=== PATIENT | male | born 1980 | race Hispanic/Latino ===

== ENCOUNTER 2016-08-02 12:36 | Emergency (ER) | payer SELFPAY ==
[2016-08-02 12:42] VITALS: BP 139/96
[2016-08-02] MEDS ORDERED: TYLENOL/CODEINE PO ONE (13:52)
--- NOTE | 2016-08-02 14:07 | Emergency Department Report ---
ED General Adult HPI - General Chief complaint: Sore Throat Stated complaint: SORE THROAT Source: patient Mode of arrival: Ambulatory Limitations: No Limitations - History of Present Illness Initial comments: 35-year-old male comes back reporting that he's had a sore throat 1 week. Patient was last seen on 1236 seen for the same issues. He was diagnosed with pharyngitis. At that time strep test is negative. Patient reports that he is not getting any better he is not really able to take antibiotics as prescribed in very to difficulty swallowing. He is not able to eat or drink much. He denies any fever at this time. - Related Data Previous Rx's Medication Instructions Recorded Last Taken Type Amoxicillin/K Clav Tab [Augmentin 1 tab PO Q12HR #14 tab 07/31/16 Unknown Rx 875MG TAB] HYDROcodone/APAP 5-325 [[place] 1 each PO Q6HR PRN #12 tablet 08/02/16 Unknown Rx 5/325] Allergies Allergy/AdvReac Type Severity Reaction Status Date / Time No Known Allergies Allergy Unverified 07/31/16 08:45 ED Review of Systems ROS: Stated complaint: SORE THROAT Other details as noted in HPI ENT: throat pain ED Past Medical Hx - Surgical History Additional Surgical History: Knee - Social History Smoking Status: Current Every Day Smoker Substance Use Type: None - Medications Home Medications: Home Medications Medication Instructions Recorded Confirmed Last Taken Type Amoxicillin/K Clav Tab [Augmentin 1 tab PO Q12HR #14 tab 07/31/16 Unknown Rx 875MG TAB] HYDROcodone/APAP 5-325 [[place] 1 each PO Q6HR PRN #12 tablet 08/02/16 Unknown Rx 5/325] ED Physical Exam - General Limitations: No Limitations General appearance: alert, in no apparent distress - ENT ENT exam: Present: mucous membranes moist - Expanded ENT Exam Expanded Throat exam: Positive: tonsillar erythema, tonsillomegaly, tonsillar exudate - Neck Neck exam: Present: tenderness, lymphadenopathy - Respiratory Respiratory exam: Present: normal lung sounds bilaterally ED Course Vital Signs 08/02/16 12:40 Temperature 98.5 F Pulse Rate 112 H Respiratory 18 Rate Blood Pressure 139/96 O2 Sat by Pulse 98 Oximetry ED Medical Decision Making - Lab Data Result diagrams: 08/02/16 14:58 - Radiology Data Radiology results: image reviewed IMPRESSION: 1. Mildly prominent palatine tonsils may represent tonsillitis. No evidence of tonsillar abscess. 2. Small cystic right paramedian neck lesion may represent a thyroglossal duct cyst versus lymphatic malformation or necrotic lymph node. - Medical Decision Making Was reevaluated by this provider today. Patient was started on IV normal saline , he was given acetaminophen with codeine 10 mg suspension for pain management. CT of the neck was done with contrast. Rocephin IV and Decadron given to patient through IV. Discussed with Dr. Combs patient's condition his agree with all plan and treatment. We will discharge patient on pain medication he can complete antibiotics that was given to him on July 31 area patient verbalized understanding. Critical care attestation.: If time is entered above; I have spent that time in minutes in the direct care of this critically ill patient, excluding procedure time. ED Disposition Clinical Impression: Pharyngitis Disposition: DISCHARGED TO HOME OR SELFCARE Is pt being admited?: No Does the pt Need Aspirin: No Condition: Stable Instructions: Tonsillitis (ED) Prescriptions: HYDROcodone/APAP 5-325 [[place] 5/325] 1 each PO Q6HR PRN #12 tablet PRN Reason: Pain Referrals: PRIMARY CARE, [Primary Care Provider] - 3-5 Days [facility] [Outside] - 3-5 Days Forms: Work/School Release Form(ED)
[2016-08-02] MEDS ORDERED: NACL 0.9% 1000 ML IV ONE (14:20)
[2016-08-02 15:07] LABS: Basophils % (Auto) 0.6 % (0.0-1.8); Eosinophils % (Auto) 2.1 % (0.0-4.3); Hematocrit 43.9 % (35.5-45.6); Hemoglobin 14.8 gm/dl (11.8-15.2); Mean Corpuscular HGB Conc 34 % (32-34); Mean Corpuscular Hemoglobin 29 pg (28-32); Mean Corpuscular Volume 85 fl (84-94); Platelet Count 327 K/mm3 (140-440); Red Blood Count 5.17 M/mm3 (3.65-5.03); Red Cell Distribution Width 13.5 % (13.2-15.2); White Blood Count 8.7 K/mm3 (4.5-11.0)
--- NOTE | 2016-08-02 16:27 | Cat Scan Report ---
FINAL REPORT EXAM: CT NECK W CON HISTORY: difficulty swallowing sore throat TECHNIQUE: CT of the neck was performed after the administration of intravenous contrast. Coronal and sagittal reconstructions were included. PRIORS: None. FINDINGS: Parapharyngeal spaces: Normal. Adenoids/tonsils: The palatine tonsils are mildly prominent in size. No tonsillar or peritonsillar abscess. The adenoids and lingular tonsils appear normal. Prevertebral soft tissues: No soft tissue swelling. Airway: Patent. Lymph nodes: No pathologically enlarged lymph nodes. Retropharynx: No abscess. Paranasal sinuses: Clear. Parotid and submandibular glands: Normal attenuation. Thyroid gland: No nodules. Vasculature: Patent. Cervical spine: Intact. There is a small cystic lesion along right para median anterior neck just deep to the hyoid bone with a small calcification posteriorly measuring 9 x 6 millimeters. IMPRESSION: 1. Mildly prominent palatine tonsils may represent tonsillitis. No evidence of tonsillar abscess. 2. Small cystic right paramedian neck lesion may represent a thyroglossal duct cyst versus lymphatic malformation or necrotic lymph node.
[2016-08-02] MEDS ORDERED: ROCEPHIN/NS 1 GM/50 ML 50 ML IV ONE (16:44)
[2016-08-02] MEDS ORDERED: DECADRON IV ONE (16:47)
== END 2016-08-02 18:20 | disposition home or self-care (01) ==
LOC: ED 12:36
DX: J02.9 Acute pharyngitis, unspecified (principal); F17.200 Nicotine dependence, unspecified, uncomplicated
CPT/HCPCS: 36415; 70491; 85025; 96361; 96365; 96375; 99284; J0696; J1100; J7030; Q9967

== ENCOUNTER 2019-05-24 15:58 | Emergency (ER) | payer SELFPAY ==
[2019-05-24 16:15] VITALS: BP 121/87
[2019-05-24] MEDS ORDERED: TETANUS,DIPH,PERTUSS(ACELL) VACCINE 0.5 ML SYRINGE IM ONE ×2 (16:34→19:06)
--- NOTE | 2019-05-24 16:34 | Emergency Department Report ---
Blank Doc - Documentation Documentation: 38-year-old male that presents with left forearm lac. Stated happened 4 days ago. Not sure about tetanus. This initial assessment/diagnostic orders/clinical plan/treatment(s) is/are subject to change based on patient's health status, clinical progression and re- assessment by fellow clinical providers in the ED. Further treatment and workup at subsequent clinical providers discretion. Patient/guardians urged not to elope from the ED as their condition may be serious if not clinically assessed and managed. Initial orders include: 1- Patient sent to [facility] for further evaluation and treatment 2- tetanus
[2019-05-24] MEDS ORDERED: SULFAMETHOXAZOLE/TRIMETHOPRIM 800/160MG DS TAB PO ONE (18:42)
--- NOTE | 2019-05-24 19:23 | Emergency Department Report ---
HPI - General Chief Complaint: Wound/Laceration Time Seen by Provider: 05/24/19 16:33 - HPI HPI: 38-year-old male presents to the emergency department with complaint of a laceration to the left forearm from 4 days ago and concern for possible infection. He says that some glass fell down onto his arm and caused what appears to be a V shaped flap laceration. At the time, the patient did not seek any medical treatment and instead just use some superglue to try and close the laceration. Since that time he has developed some pain, surrounding redness, and there is some pus that will come out if you press on the wound. He denies any fever. No past medical history. No primary care physician. Unknown last tetanus vaccination. ED Past Medical Hx - Past Medical History Previous Medical History?: No - Surgical History Past Surgical History?: Yes Additional Surgical History: Knee - Social History Smoking Status: Current Every Day Smoker Substance Use Type: None - Medications Home Medications: Home Medications Medication Instructions Recorded Confirmed Last Taken Type Amoxicillin/K Clav Tab [Augmentin 1 tab PO Q12HR #14 tab 07/31/16 Unknown Rx 875MG TAB] HYDROcodone/APAP 5-325 [[place] 1 each PO Q6HR PRN #12 tablet 08/02/16 Unknown Rx 5/325] Ibuprofen [Motrin 800 MG tab] 800 mg PO Q8HR PRN #20 tablet 05/24/19 Unknown Rx Sulfamethoxazole/Trimethoprim 1 each PO BID #14 tablet 05/24/19 Unknown Rx [Bactrim DS TAB] ED Review of Systems ROS: Stated complaint: CUT ON ARM/POSS INFECTION Other details as noted in HPI Comment: All other systems reviewed and negative Constitutional: denies: chills, fever Respiratory: denies: shortness of breath Musculoskeletal: myalgia. denies: joint swelling Skin: change in color, other (laceration, erythema) Neurological: denies: weakness, numbness, paresthesias Physical Exam - Physical Exam Vital Signs: Vital Signs 05/24/19 16:06 Temperature 98.3 F Pulse Rate 98 H Respiratory 16 Rate Blood Pressure 121/87 O2 Sat by Pulse 99 Oximetry Physical Exam: GENERAL: The patient is well-developed well-nourished. HENT: Normocephalic. Atraumatic. Patient has moist mucous membranes. EYES: Extraocular motions are intact. NECK: Supple. Trachea is midline. CHEST/LUNGS: Clear to auscultation. There is no respiratory distress noted. HEART/CARDIOVASCULAR: Regular. There is no tachycardia. There is no murmur. ABDOMEN: There is no abdominal distention. SKIN: There is a V-shaped wound that looks to be a previous flap laceration to the ulnar side of the distal left forearm. There is some surrounding erythema that is slightly raised. There is a very small amount of purulent discharge seen when palpating the wound. NEURO: The patient is awake, alert, and oriented. The patient is cooperative. The patient has no focal neurologic deficits. Normal speech. MUSCULOSKELETAL: There is some tenderness to palpation to the left forearm or the patient has a laceration and possible infected wound. Radial pulse +2 over 4 and capillary refill less than 2 seconds to the affected left upper extremity. ED Course Vital Signs 05/24/19 16:06 Temperature 98.3 F Pulse Rate 98 H Respiratory 16 Rate Blood Pressure 121/87 O2 Sat by Pulse 99 Oximetry ED Medical Decision Making - Radiology Data Radiology results: image reviewed interpreted by me: X-ray of the left forearm does not show any fracture, dislocation or signs of osteomyelitis. - Medical Decision Making Patient presents to the emergency department 4 days after getting a laceration to the left forearm from some glass. He used superglue to close the wound and now it appears infected. There is some surrounding erythema, and a very mild amount of purulence that will be expressed when you push on the wound. An x-ray was done that does not show any fracture, dislocation or signs of osteomyelitis. His vital signs are stable including being afebrile. Tetanus vaccination was updated. The patient was placed on antibiotics. We discussed monitoring for any worsening infection. He will return to the ER with any worsening of his symptoms or any acute distress. - Differential Diagnosis fracture, cellulitis, abscess, osteomyelitis Critical Care Time: No Critical care attestation.: If time is entered above; I have spent that time in minutes in the direct care of this critically ill patient, excluding procedure time. ED Disposition Clinical Impression: Infected wound Laceration of left forearm Qualifiers: Encounter type: initial encounter Qualified Code(s): S51.812A - Laceration without foreign body of left forearm, initial encounter Cellulitis Qualifiers: Site of cellulitis: unspecified site Qualified Code(s): L03.90 - Cellulitis, unspecified Disposition: DC-01 TO HOME OR SELFCARE Is pt being admited?: No Condition: Stable Instructions: Laceration (ED), Wound Infection (ED), Cellulitis (ED) Additional Instructions: Please follow-up with your primary care physician in the next few days. Clean the area with soap and water and then keep it dry. Take the antibiotics as prescribed. Return to the emergency Department with any worsening of your symptoms such as increased swelling, increased surrounding redness, increased pus, development of fever, increased or new pain, or with any acute distress. Prescriptions: Sulfamethoxazole/Trimethoprim [Bactrim DS TAB] 1 each PO BID #14 tablet Ibuprofen [Motrin 800 MG tab] 800 mg PO Q8HR PRN #20 tablet PRN Reason: Pain , Severe (7-10) Referrals: SOCORRO PRIEST MD [Staff Physician] - 2-3 Days [facility] [Outside] - 2-3 Days Time of Disposition: 19:39
--- NOTE | 2019-05-24 19:26 | XRay Report ---
HISTORY:left forearm laceration and infection COMPARISON: None. TECHNIQUE: AP lateral and obliques views were obtained FINDINGS: Bones: No fracture or dislocation. Joint spaces: Maintained. Soft tissues: Soft tissue edema Additional findings: None. IMPRESSION: 1. Soft tissue injury Signer Name: Don Villatoro MD Signed: 05/24/2019 7:22 PM Workstation Name: [id number]
== END 2019-05-24 19:42 | disposition home or self-care (01) ==
LOC: ED 15:58
DX: S51.812A Laceration without foreign body of left forearm, initial encounter (principal); L03.114 Cellulitis of left upper limb; F17.200 Nicotine dependence, unspecified, uncomplicated; W25.XXXA Contact with sharp glass, initial encounter; Y93.89 Activity, other specified; Y92.89 Other specified places as the place of occurrence of the external cause; Y99.8 Other external cause status
CPT/HCPCS: 90471; 90715